=== PATIENT | male | born 1955 | race Caucasian/White ===

== ENCOUNTER → 2017-05-18 | Outpatient (CLI) | payer OTHER ==
[~2017-05-18] MED LIST: REGADENOSON 0.4 MG/5 ML DISP.SYRIN. IV ONE
--- NOTE | 2017-05-18 13:02 | PCVCIMAG ---
APPROVED REPORT Study performed: 05/18/2017 07:58:23 EXAM: Comprehensive 2D, Doppler, and color-flow Echocardiogram Patient Location: Echo lab Status: routine BSA: 2.35 HR: 66 bpmBP: 162/96 mmHg Rhythm: NSR Other Information Study Quality: Good Risk Factors: Cardiac Risk Factors: cad,htn, Indications Chest Pressure Dyspnea CAD Hypertension/HDD 2D Dimensions LVEF(%): 58.03 (>50%) IVSd: 7.82 (7-11mm)LVOT Diam: 24.98 (18-24mm) LVDd: 42.90 mm PWd: 9.72 (7-11mm)Ascending Ao: 39.70 (22-36mm) LVDs: 29.88 (25-40mm) Left Atrium: 39.26 (27-40mm) Aortic Root: 35.13 mm LV Single Plane 4CH: 52.18 % LV Single Plane 2CH: 55.74 %Garcia's LVEF: 53.96 % Biplane EF: 53.8 % Volumes Left Atrial Volume (Systole) Single Plane 4CH: 59.21 mLSingle Plane 2CH: 87.06 mL Biplane LA Volume: 73.00 mLLA ESV Index: 31.00 mL/m2 Aortic Valve AoV Peak Timoteo.: 1.48 m/s AO Peak Gr.: 8.78 mmHgLVOT Max P.88 mmHg LVOT Max V: 0.98 m/s SORAIDA Vmax: 3.25 cm2 Mitral Valve E/A Ratio: 2.0 MV Decel. Time: 192.15 ms MV E Max Timoteo.: 0.81 m/s MV A Timoteo.: 0.41 m/s IVRT: 106.11 ms TDI E/Lateral E': 8.10E/Medial E': 8.10 Medial E' Timoteo.: 0.10 m/s Lateral E' Timoteo.: 0.10 m/s Pulmonary Valve PV Peak Timoteo.: 0.92 m/sPV Peak Gr.: 3.40 mmHg Pulmonary Vein P Vein S: 0.38 m/sP Vein A: 0.24 m/s P Vein D: 0.35 m/sP Vein A Dur.: 101.5 msec P Vein S/D Ratio: 1.09 Tricuspid Valve TV Vmax: 0.90 m/s Left Ventricle The left ventricle is normal size. There is normal LV segmental wall motion. There is normal left ventricular wall thickness. Left ventricular systolic function is normal. The left ventricular ejection fraction is within the normal range. LVEF is 50-55%. The left ventricular diastolic function is normal. Right Ventricle The right ventricle is normal size. RV free wall appears mildly thickened and bright. Possible fat pad seen. The right ventricular systolic function is normal. Atria The left atrium size is normal. The right atrium size is normal. Aortic Valve The aortic valve is normal in structure. No aortic regurgitation is present. There is no aortic valvular stenosis. Mitral Valve The mitral valve is normal in structure. There is no mitral valve regurgitation noted. No evidence of mitral valve stenosis. Tricuspid Valve The tricuspid valve is normal in structure. There is no tricuspid valve regurgitation noted. Pulmonic Valve The pulmonary valve is normal in structure. There is no pulmonic valvular regurgitation. Great Vessels The aortic root is normal in size. The ascending aorta is mildly dilated at 4.ocm. The arch measures 3.5 and descending returns to normal. IVC is normal in size and collapses with >50% inspiration Pericardium There is no pericardial effusion. There is no pleural effusion. <Conclusion> The left ventricle is normal size. There is normal left ventricular wall thickness. LVEF is 50-55%. The left ventricular diastolic function is normal. The right ventricle is normal size. The left atrium size is normal. There is no aortic valvular stenosis. There is no mitral valve regurgitation noted. There is no tricuspid valve regurgitation noted. There is no pericardial effusion.
--- NOTE | 2017-05-18 15:03 | PCVCIMAG ---
APPROVED REPORT Exam: Nuclear Stress Test Indication: CAD , Dyspnea, Chest pain Stress Nurse: Shanon Giles RN, Debra Segovia RN [place] Tech:FIFI Mack Ht: 6 ft 2 in Wt: 240 lbs BSA: 2.35 m2 HR: 62 bpm BP: 180/101 mmHg BMI: 30.8 Rhythm: SR Medical History Medical History: Hyperlipidemia, Smoking, CAD, Age Medications: Bystolic (held 36h), aspirin, atorvastatin, zetia, prilosec (remainder held this AM), NTG Allergies: NKDA Previous Cardiac Procedures: PCI Pretest Chest Pain Characteristics: NONE Physical Disabilities: Physical limitations NM EXAM: Myocardial Perfusion REST/STRESS Resting Data Rest SPECT myocardial perfusion imaging was performed in supine position 45 minutes following the intravenous injection of 10.6 mCi of Tc-99m Sestamibi. Time of rest injection: 0845 Date: 05/18/2017 Administration Route: IV Administration Site: Right Arm Pharmacologic Stress Pharmacologic stress test was performed by injecting Regadenoson 0.4 mg IV push followed by the intravenous injection of 35.7 mCi of Tc-99m Sestamibi. Time of stress injection: 949 Date: 05/18/2017 Administration Route: IV Administration Site: Right Arm Gated Stress SPECT was performed 45 minutes after stress injection. The images were gated to evaluate regional wall motion and calculate left ventricular ejection fraction. Study Quality Study: Good Study Data Post stress, the left ventricular ejection was 66%.. SSS: 0 SRS: 0 SDS: 0 TID = 0.99. Perfusion No evidence of stress induced ischemia or prior myocardial infarction. Wall Motion Normal left ventricular size and function with no regional wall motion abnormalities. Nuclear Conclusion No evidence of stress induced ischemia or prior myocardial infarction. Normal left ventricular size and function with no regional wall motion abnormalities. Post stress, the left ventricular ejection was 66%.. No change since prior study dated February 2015. Interpreted by: Jaime Anton MD Electronically Approved: 05/18/2017 13:50:39 Stress Test Details Stress Test: Pharmacologic stress testing performed using 0.4 mg of regadenoson per 5 mL given IV over 10 seconds. Reason for pharmacologic stress test: physical limitation. HR Resting HR: 62 bpmMax Heart Rate (APMHR): 160 bpm Max HR Achieved: 81 bpmTarget HR (85% APMHR): 136 bpm % of APMHR: 50 Recovery HR: 71 bpm BP Resting BP: 180/101 mmHg Max BP: 202/104 mmHg ECG Resting ECG: Sinus Rhythm, Sinus Rhythm Stress ECG: Sinus Rhythm, NSSTT changes Recovery ECG: Sinus Rhythm Clinical Reason for Termination: Completed protocol Stress Symptoms: Dyspnea Exercise duration: 0 min 55 sec Symptoms resolved during recovery. Stress ECG Conclusion ECG: Non-ischemic Clinical: Non-ischemic <Conclusion> ECG: Non-ischemic Clinical: Non-ischemic
== END | disposition home or self-care (01) ==
LOC: PCVCIMAG 07:42
PROVIDERS: ATTEND Internal Medicine Cardiovascular Disease
DX: I25.10 Atherosclerotic heart disease of native coronary artery without angina pectoris (principal); I10 Essential (primary) hypertension; E78.5 Hyperlipidemia, unspecified; K52.9 Noninfective gastroenteritis and colitis, unspecified; F17.200 Nicotine dependence, unspecified, uncomplicated
CPT/HCPCS: 78452; 93017; 93306; A9500; J2785

== ENCOUNTER → 2019-04-23 | Outpatient (CLI) | payer OTHER ==
--- NOTE | 2019-04-23 15:07 | PCVCIMAG ---
APPROVED REPORT Study performed: 04/23/2019 11:42:52 Exam: Stress Echocardiogram Indication: CAD s/p PCI Patient Location: Echo lab Stress Nurse: Diana Joya RN Room #: 2 Status: routine Ht: 6 ft 2 in HR: 63 bpm BP: 114/72 mmHg Rhythm: NSR Medical History Medical History: CAD s/p stent, NILSON to RCA, Cardiac Risk Factors: Tobacco History (Current/Recent), Hyperlipidemia Previous Cardiac Procedures: PCI Pretest Chest Pain Characteristics: No chest pain Exercise History: Indeterminate Procedure The patient underwent an Exercise Stress Test using the Alex Protocol. Blood pressure, heart rate, and EKG were monitored. An Echocardiogram was performed by emergency technician in four stages in quad fashion. At peak stress, four selected images were obtained and placed side by side with resting images for comparison. Stress Test Details Stress Test: Exercise stress testing was performed using a Alex protocol. HR Resting HR: 63 bpmMax Heart Rate (APMHR): 158 bpm Max HR Achieved: 108 bpmTarget HR (85% APMHR): 134 bpm % of APMHR: 68 Recovery HR: 72 bpm HR response to stress: Normal HR response to stress BP Resting BP: 114/72 mmHg Max BP: 148/70 mmHg Recovery BP: 124/80 mmHg BP response to stress: Normal blood pressure response to stress. ECG Resting ECG: Sinus Rhythm Stress ECG: Sinus Rhythm ST Change: Non-ischemic Maximum ST Deviation: -0.8 mm Arrhythmia: rare PVCs Recovery ECG: Sinus Rhythm Recovery ST Change: Non-ischemic Recovery ST Deviation: -0.70 mm Recovery Arrhythmia: None Clinical Reason for Termination: Maximal effort Stress Symptoms: leg fatigue,shortness of breath Exercise duration: 6 min 15 sec Highest Stage Achieved: Stage 3: 3.4 mph at 14% grade. Exercise capacity: 7.7 METs Overall Exercise Capacity for Age: Poor Angina Score: None No complications. Stress ECG Conclusion The patient exercised according to the ALEX protocol for 6:15 mins; achieving a work level of 7.7 METS. The resting heart rate of 63 bpm [place] to a maximum heart rate of 108 bpm. This value represents 68 % of the maximal, age-predicted heart rate. The resting blood pressure of 114/72 mmHg, [place] to a maximum blood pressure of 148/70 mmHg. The exercise test was stopped due to fatigue. Post Treadmill Score is 10.0 which is Low risk. Pre-Stress Echo The resting Echocardiogram showed normal left ventricular contractility with an estimated Ejection Fraction of about 55-60%. Post-Stress Echo The stress Echocardiogram showed normal left ventricular contractility with an estimated Ejection Fraction of about 60-65%. Normal augmentation of wall motion in all segments on post stress images. Clinical No clinical or ECG evidence for ischemia. Conclusion Clinical Response: Non-ischemic Exercise Capacity: Below Average Stress ECG Response: Non-ischemic Stress Echo Images: Non-ischemic Normal stress echocardiogram with submaximal exercise stress. No clinical, EKG or echocardiographic evidence for ischemia. No echocardiographic evidence for exercise induced ischemia. Normal color doppler. No regurgitation or stenosis present on pulmonic, mitral, tricuspid or aortic valves. <Conclusion> Normal stress echocardiogram with submaximal exercise stress. No clinical, EKG or echocardiographic evidence for ischemia. No echocardiographic evidence for exercise induced ischemia. Normal color doppler. No regurgitation or stenosis present on pulmonic, mitral, tricuspid or aortic valves.
== END | disposition home or self-care (01) ==
LOC: PCVCIMAG 11:26
PROVIDERS: ATTEND Internal Medicine Cardiovascular Disease
DX: I25.10 Atherosclerotic heart disease of native coronary artery without angina pectoris (principal); Z95.5 Presence of coronary angioplasty implant and graft
CPT/HCPCS: 93325; 93351

== ENCOUNTER → 2019-06-11 | Outpatient (CLI) | payer OTHER ==
--- NOTE | 2019-06-11 09:23 | PCVCIMAG ---
EXAM: BILATERAL CAROTID DUPLEX INDICATION: Carotid Occlusive Disease. FINDINGS: Doppler Measurements (centimeters per second): RIGHT: Peak CCA-75, Peak ECA-92, Diastolic ICA-39, Peak ICA-103, ICA/CCA Ratio-1.4. LEFT: Peak CCA-80, Peak ECA-106, Diastolic ICA-46, Peak ICA-127, ICA/CCA Ratio-1.6. RIGHT CAROTID: The carotid bulb has moderate plaque. The proximal internal carotid artery shows <40% stenosis. The common carotid artery shows no significant stenosis. The external carotid artery shows no significant stenosis. LEFT CAROTID: The carotid bulb has moderate plaque. The proximal internal carotid artery shows 40-50% stenosis. The common carotid artery shows no significant stenosis. The external carotid artery shows no significant stenosis. Antegrade flow in both vertebral arteries. IMPRESSION: <40% stenosis of the right internal carotid artery with moderate plaque. 40-50% stenosis of the left internal carotid artery with moderate plaque. LOC:[place] [id number]
--- NOTE | 2019-06-11 15:57 | PCVCIMAG ---
EXAM: AORTOILIAC DUPLEX INDICATION: Palpable abdominal prominence. FINDINGS: AORTA: Suprarenal aorta measures maximum diameter of 3.0 cm. There is not a fusiform infrarenal aortic aneurysm. The infrarenal aorta measures maximum diameter of 2.4 cm. No aortic stenosis. RIGHT COMMON ILIAC ARTERY: Maximum diameter is 1.2 cm. Mild stenosis. RIGHT EXTERNAL ILIAC ARTERY: No significant stenosis. LEFT COMMON ILIAC ARTERY: Maximum diameter is 1.2 cm. Mild stenosis. LEFT EXTERNAL ILIAC ARTERY: No significant stenosis. IMPRESSION: No abdominal aortic aneurysm. No flow-limiting aortoiliac stenosis seen. LOC:[id number]
--- NOTE | 2019-06-11 15:58 | PCVCIMAG ---
EXAM: BILATERAL LOWER EXTREMITY ARTERIAL DUPLEX INDICATION: Peripheral Arterial Disease. Leg pain. FINDINGS: Right Leg: Satisfactory arterial waveforms throughout the common/profunda/superficial femoral, popliteal, anterior tibial, peroneal, and posterior tibial arteries. No flow limiting stenosis seen. Left Leg: Satisfactory arterial waveforms throughout the common/profunda/superficial femoral, popliteal, anterior tibial, peroneal, and posterior tibial arteries. No flow limiting stenosis seen. IMPRESSION: No flow limiting stenosis in the right lower extremity. No flow limiting stenosis in the left lower extremity. LOC:[id number]
== END | disposition home or self-care (01) ==
LOC: PCVCIMAG 07:52
PROVIDERS: ATTEND Internal Medicine Cardiovascular Disease
DX: I65.23 Occlusion and stenosis of bilateral carotid arteries (principal); I73.9 Peripheral vascular disease, unspecified; E78.00 Pure hypercholesterolemia, unspecified; I10 Essential (primary) hypertension; F17.210 Nicotine dependence, cigarettes, uncomplicated
CPT/HCPCS: 93880; 93925; 93978